=== PATIENT | male | born 1980 | race Caucasian/White ===

== ENCOUNTER 2020-10-14 15:58 | Emergency (ER) | payer OTHER, SELFPAY ==
--- NOTE | ~2020-10-14 | CT_ITS ---
EXAMINATION: CT facial bones w con DATE: 10/14/2020 16:58 INDICATION: Pain and swelling. Possible glass shard at right temporal TECHNIQUE: Computed tomography (CT) of the facial bones and maxillofacial region was performed withou t intravenous contrast. Automated exposure control and iterative reconstruction technique were employ ed. Exam dose: 295.52 mGy-cm total exam DLP. COMPARISON: None. FINDINGS: There are multiple (at least 10 or more) radiopaque foreign bodies consistent with glass wi thin the right temporal soft tissues, the largest measuring up to 1.5 cm length and 2 mm width. The r adiopaque foreign bodies extend from the subcutaneous tissues all the way to the outer table of the t emporal bone. The nasal bones, anterior maxillary spine, frontozygomatic sutures, zygomatic bones and the remainder of the facial bones are intact, without evidence of fracture. Normal alignment at the temporal mariana bular joints. No mandibular fracture. There is soft tissue thickening of the right ethmoid air cells and minimal soft tissue thickening of the medial right frontal sinus. There is a small mucus retention cyst at the posterior aspect of the left maxillary sinus. The paranasal sinuses and mastoid air cells are otherwise unremarkable. IMPRESSION: Multiple glass foreign bodies within the right temporal soft tissues, extending to the o uter table of the right temporal bone Reviewed, dictated and finalized at [facility]. Reviewed, dictated and finalized at [facility]. IMPRESSION: Multiple glass foreign bodies within the right temporal soft tissu es, extending to the outer table of the right temporal bone
--- NOTE | ~2020-10-14 | XR_ITS ---
XR facial bones min 3V DATE: 10/14/2020 19:38 INDICATION: Injury. Glass in right temporal soft tissues TECHNIQUE: Multiple views COMPARISON: None FINDINGS: At least one approximately 2.5 x 10.7 mm radio opaque foreign body is noted overlying the r ight temporal soft tissues. No facial fracture is evident. The frontozygomatic sutures and zygomatic arches are intact. Paranasal sinuses and mastoid air cells appear normally developed and aerated. IMPRESSION: At least one approximately 2.5 x 10.7 mm radiopaque foreign body, right temporal area Reviewed, dictated and finalized at [facility]. IMPRESSION: At least one approximately 2.5 x 10.7 mm radiopaque foreign body, r ight temporal area
[2020-10-14 16:03] VITALS: BP 158/90; PULSE 71; RESP 16; TEMP 36.7; O2SAT 100
--- NOTE | 2020-10-14 16:35 | ED.GENADULT ---
HPI - General Adult General Chief complaint: Skin/Abscess/Foreign Body <Kb Holder PA-C - Last Filed: 10/14/20 20:32> Stated complaint: GLASS FRAGMENT EMBEDDED IN SKIN <Kb Holder PA-C - Last Filed: 10/14/20 20:32> Time Seen by Provider: 10/14/20 16:07 <Kb Holder PA-C - Last Filed: 10/14/20 20:32> Source: patient, family and RN notes reviewed <bK Holder PA-C - Last Filed: 10/14/20 20:32> Mode of arrival: ambulatory <Kb Holder PA-C - Last Filed: 10/14/20 20:32> Limitations: no limitations <Kb Holder PA-C - Last Filed: 10/14/20 20:32> History of Present Illness HPI narrative: Patient is a 39-year-old male who presents to emergency department for evaluation of puncture wound to the right temporal region patient was walking around a corner when he sustained a puncture wound patient has swelling in the right temporal region with discomfort down into the jaw patient notes that he removed the puncture wound which she believes to been roughly half to 1 inch long glass shard patient is unsure as to tetanus status patient presents in no distress patient has not had anything for his symptoms did attempt cool compresses with minimal improvement <Kb Holder PA-C - Last Filed: 10/14/20 20:32> Related Data Allergies/adverse reactions: Allergies Allergy/AdvReac Type Severity Reaction Status Date / Time No Known Allergies Allergy Verified 10/14/20 16:07 <Kb Holder PA-C - Last Filed: 10/14/20 20:32> Review of Systems Review of Systems: All systems reviewed & are unremarkable except as noted in HPI and below <Kb Holder PA-C - Last Filed: 10/14/20 20:32> PMFSH Social History Social History: Social History (Updated 10/14/20 @ 16:36 by Kb Holder PA-C) Smoking status: Current every day smoker <Kb Holder PA-C - Last Filed: 10/14/20 20:32> Exam Narrative: Exam Narrative: GENERAL: Well-appearing, well-nourished, and in no acute distress. HEAD: Normocephalic, localized swelling of the right zoroastrianism region with anterior small puncture wound with clear discharge slight amount of swelling noted to the lateral inferior periorbital region consistent with hematoma EYES: PERRLA and EOMI. ENT: Nares clear, no rhinorrhea or epistaxis. Mucous membranes moist. CHEST: Clear to auscultation. No respiratory distress. No wheezes rales or rhonchi HEART: Regular rate and rhythm. No murmur heard. EXTREMITIES: Normal range of motion. No edema. SKIN: Warm, dry, no rash. NEURO: No focal deficits. Alert and oriented x3. Cranial nerves II through XII grossly intact PSYCH: Normal mood and affect. <Kb Holder PA-C - Last Filed: 10/14/20 20:32> Course Course Emergency Course: Patient evaluated by plastic surgery who was able to remove the foreign body in the ER patient will follow with plastic surgery tetanus updated antibiotics given the emergency department will be discharged home provided with reasons to return <Kb Holder PA-C - Last Filed: 10/14/20 20:32> HEAD CORRECTION OFFICER/PA Physician Supervision This patient did not have a signed prescription for pain medication, thus I verified with his pharmacy on 10/15/20 and a short term 3 day RX was called in for him. <Isabel Holman MD - Last Filed: 10/15/20 09:00> Consultations Consultation #1: Spoke with plastic surgery regarding this patient who has agreed to follow the patient and will see the patient in the emergency department <Kb Holder PA-C - Last Filed: 10/14/20 20:32> Date: 10/14/20 <AVILA Hood Last Filed: 10/14/20 20:32> Vital Signs Vital signs: Vital Signs Temperature 36.7 C 10/14/20 16:03 Pulse Rate 71 10/14/20 16:03 Respiratory Rate 16 10/14/20 16:03 Blood Pressure 158/90 H 10/14/20 16:03 Pulse Oximetry 100 10/14/20 16:03 Temperature 36.7 C 10/14/20 16:03 Pulse Rate 64 10/14/20 20:40
[2020-10-14 16:50] LABS: Estimated CRCL calculation 98 ml/min; Estimated Glomerular Filt Rate > 60
[2020-10-14] MEDS: HYDROcodone/acetaminophen (*CRX) 5-325 MG TABLET 1 TAB PO (17:30)
[2020-10-14] MEDS: TETANUS,DIPHTHERIA,AC PERTUSSIS ADULT (0.5 ML) BOOSTRIX IM (17:31)
[2020-10-14] MEDS: KETOROLAC 30 MG/ML VIAL (*BKC) IV PUSH (17:31)
[2020-10-14] MEDS: LORazepam INJ (*CRX) 2 MG/ML VIAL 1 MG IV PUSH (17:31)
[2020-10-14] MEDS: ceFAZolin 2 GM/D5W 50 ML 2 GM/50 ML BAG IVPB (17:43)
--- NOTE | 2020-10-14 19:30 | WPDCN ---
Assessment and Plan Assessment and plan (1) Foreign body of face: Code(s): S00.85XA - Superficial foreign body of other part of head, initial encounter Status: Acute Assessment and Plan: He would like proceed with attempted removal in the emergency room of foreign body right adventist multiple pieces of glass. See procedure note. We were successful removing the majority of the glass. Follow-up in 1 week. Antibiotics per ER. Today I spent 35 minutes reviewing old records and discussing with patient as well as charting min prior to procedure. Risks, benefits, alternatives were discussed in extensive detail. I want him to be very realistic about the risks involved as well as expectations. We discussed the option of leaving the glass. We discussed facial nerves location and the risk that removal could actually worsen his situation. His he has a lot of discomfort with chewing. He can feel pain in that area. After hearing all his options discussed extensively he would like proceed with removal. He understands we will attempt to remove in the emergency room. If unsuccessful may need proceed to the operating room. Despite best efforts it is unlikely all of the foreign material. All questions answered to his satisfaction. He was able to verbalize understanding. In particular facial nerve branches were discussed and he was able to repeat this back so was clear that he understanding the risks involved. Consent obtained. We discussed the care. What monitor for. He is going to call with any questions or concerns. 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 He says he spent some time trying to get this zone with mass size but was unable to. He proceed to the emergency room for evaluation. Emergency room staff evaluated. CT scan was taken. IMPRESSION: Multiple glass foreign bodies within the right temporal soft tissues, extending to the outer table of the right temporal bone He says he feels fine. No fevers or chills. No nausea vomiting. Vision intact. No complaints. Primary Care Provider: ELEVATOR MECHANIC APPRENTICE PHYSICIAN Consult Narrative Narrative: Karan Reynolds is a 39 year old male Review of Systems Review of Systems: All systems reviewed & are unremarkable except as noted in HPI and below [facility] Social History Social History (Updated 10/14/20 @ 16:36 by Kb Holder PA-C) Smoking status: Current every day smoker Meds Home Medications and Allergies Allergies Allergy/AdvReac Type Severity Reaction Status Date / Time No Known Allergies Allergy Verified 10/14/20 16:07 Vital Signs Vital Signs - 24 hr 10/14/20 16:03 Temperature 36.7 C Pulse Rate 71 Respiratory Rate 16 Blood Pressure 158/90 H Pulse Oximetry 100 Exam Narrative: Exam Narrative: Cranial nerves 2-12 are grossly intact. He is able to elevate his right brow. He has an open wound located in the right adventist. Results Labs CBC & Chem 7: 10/14/20 16:48 Labs: BMP 10/14/20 16:48 Creatinine 1.00
--- NOTE | 2020-10-14 20:12 | W.PM.PROC2 ---
Procedure Note - Detailed Date of Procedure 10/14/20 Pre-op Diagnosis Foreign body right synagogue Post-op Diagnosis same Procedure Performed Removal of foreign body (glass) right synagogue deep to fascia / intramuscular (multiple pieces) Surgeon Bebeto Clifford MD Anesthesia local Findings I was able to remove the majority of class. Small fragments remained which I could not identify. He understands our options and would like to monitor. The wound was well washed out. Will discharge home per ER staff. Description of Procedure Before proceeding risks, benefits, alternatives were discussed. All questions answered. We discussed the local anatomy and risk of injury to the facial nerve. He was having significant discomfort with jaw motion which was radiating down his job prior to the procedure. Consent was obtained. Prepped and draped in a standard sterile fashion. 1% lidocaine with epinephrine was used anesthetize locally. Rapidly after injection he did lose the ability to raise the right brow. I proceeded with exploration. I did not have to extend this. Care was taken not to injure deep structures. I was able to follow the tract and multiple pieces of glass were identified. After I had removed the majority there was able to identify we did obtain a x-ray of the facial bones. I reviewed this along with the CT scan with the radiologist. Did. There was a single larger piece still remaining. Also multiple small fragments. On reexploration based on the CT, radiograph common review with the radiologist I was able to find the final piece. There was no additional injury to deep structures. No evidence of neurovascular injury. In total I removed approximately 5 pieces of class. The largest was between 1 and 1.5 cm in length. I copiously irrigated with a spray bottle. Dressing was placed. Estimated Blood Loss 2 Drains No Packing No Pathology none sent Complications No immediate complications Condition stable Disposition other
[2020-10-14 20:40] VITALS: BP 158/92; PULSE 64; RESP 16; O2SAT 97
== END 2020-10-14 20:57 | disposition home or self-care (01) ==
PROVIDERS: Emergency Provider Emergency Medicine
DX: S01.84XA Puncture wound with foreign body of other part of head, initial encounter (principal); F17.200 Nicotine dependence, unspecified, uncomplicated; W25.XXXA Contact with sharp glass, initial encounter; W45.8XXA Other foreign body or object entering through skin, initial encounter
CPT/HCPCS: 70150; 70487; 90471; 90715; 96365; 96372; 96375; 99284; A9270; J0690; J1885; J2060; Q9967